=== PATIENT | male | born 1965 | race Caucasian/White ===

== ENCOUNTER 2016-09-26 08:23 | Emergency (ER) | payer MEDICAID, OTHER ==
[~2016-09-26] VITALS: Ht 167.6 cm; Wt 93.4 kg
[2016-09-26 08:45] VITALS: BP 146/96
== END 2016-09-26 09:15 | disposition home or self-care (01) ==
LOC: ER 08:23
DX: I10 Essential (primary) hypertension (principal); E78.5 Hyperlipidemia, unspecified; Z88.0 Allergy status to penicillin; Z88.6 Allergy status to analgesic agent

== ENCOUNTER 2016-10-11 09:17 | Emergency (ER) | payer MEDICAID ==
[~2016-10-11] VITALS: Ht 167.6 cm; Wt 87.1 kg
[2016-10-11 09:34] VITALS: BP 139/93
== END 2016-10-11 09:54 | disposition home or self-care (01) ==
LOC: ER 09:17
DX: I16.0 Hypertensive urgency (principal); E78.5 Hyperlipidemia, unspecified; I10 Essential (primary) hypertension; Z88.0 Allergy status to penicillin; Z88.6 Allergy status to analgesic agent; Z76.0 Encounter for issue of repeat prescription